=== PATIENT | female | born 1945 | race Caucasian/White ===

== ENCOUNTER 2017-02-20 20:10 | Emergency (ER) | payer MEDICARE, OTHER ==
[~2017-02-20] VITALS: Ht 170.2 cm; Wt 68.2 kg
[~2017-02-20 20:10] MED LIST: AMLO1CAP72 PO; ATOR40TA21 PO; CEPH-443 PO; CYCL-117 PO; ESOM40CA PO; NAPR-260 PO; RTPRO IH
[2017-02-20 20:14] VITALS: Ht 170.2 cm; Wt 68.2 kg
--- NOTE | 2017-02-20 22:26 | ERD ---
ER Documentation Chief Complaint Chief Complaint FALL DOWN STAIRS DUE TO LOSS OF FOOTING, HEAD BUMP, -N/V/DIZZINESS HPI This is a 71-year-old female who presents to the emergency department today complaining of a headache and abrasion on her head that she sustained earlier today. Patient states that she was at her daughter's house when she was walking up a slope and slipped on the slope and fell and hit her head. States she has not taken any medication for the pain. Denies any loss of consciousness , vomiting. ROS All systems reviewed and are negative except as per history of present illness. Medications Home Meds Active Scripts Acetaminophen* (Tylophen*) 500 Mg Capsule, 1 CAP PO Q6H Y for PAIN AND OR ELEVATED TEMP, #30 CAP Prov:FILIPE MCCAIN PA-C 02/20/17 Naproxen* (Naprosyn*) 500 Mg Tablet, 500 MG PO BID Y for PAIN AND/OR INFLAMMATION, #30 TAB Prov:FAISAL STEPHENS PA-C 10/19/15 Cephalexin* (Keflex*) 500 Mg Capsule, 500 MG PO Q6 for 7 Days, CAP Prov:JERMAN SKELTON NP 04/13/15 Reported Medications Albuterol Sulfate* (Proventil* Neb) 3 Ml Nebu, 3 ML IH Y 07/01/12 Cyclobenzaprine Hcl (Flexeril) 10 Mg Tablet, 10 MG PO BID 07/01/12 Esomeprazole Mag Trihydrate (Nexium) 40 Mg Capsule.dr, 40 MG PO DAILY 07/01/12 Atorvastatin (Lipitor) 40 Mg Tablet, 40 MG PO DAILY 07/01/12 Amlodipine Besylate/Benazepril (Lotrel 5-10 Mg Capsule) 1 Cap Capsule, 1 CAP PO DAILY 07/01/12 Allergies Allergies: Coded Allergies: iodine (Verified Allergy, Intermediate, RASH, HOT, MALAISE, 10/19/15) PMhx/Soc Medical and Surgical Hx: pt denies Surgical Hx History of Surgery: Yes (BREAST MASTECTOMY (L)) Anesthesia Reaction: No Hx Neurological Disorder: No Hx Respiratory Disorders: Yes (ASTHMA) Hx Cardiac Disorders: Yes (HTN) Hx Psychiatric Problems: No Hx Miscellaneous Medical Probl: Yes (BREAST CANCER) Hx Alcohol Use: No Hx Substance Use: No Hx Tobacco Use: Yes Physical Exam Vitals Vital Signs Date Time Temp Pulse Resp B/P Pulse Ox O2 Delivery O2 Flow Rate FiO2 02/20/17 20:14 97.8 91 20 181/98 99 Physical Exam Const: sitting in wheelchair, NAD Head: Abrasion left side had parietal aspect with no laceration Eyes: Normal Conjunctiva PERRLA. EOM intact. ENT: Normal External Ears, Nose and Mouth. No hemotympanum. No epistaxis. Neck: Full range of motion..~ No meningismus. No midline tenderness. Resp: Clear to auscultation bilaterally Cardio: Regular rate and rhythm, no murmurs Abd: Soft, non tender, non distended. Normal bowel sounds Skin: No petechiae or rashes Back: No midline or flank tenderness Ext: No cyanosis, or edema Neur: Awake and alert. Cranial nerves II through XII intact. Did not assess gait. Psych: Normal Mood and Affect Results 24 hrs DIAGNOSTIC IMAGING REPORT Patient: DORETHA GUSMAN : 1945 Age: 71 Sex: F [id number] DOS: 02/20/17 0000 Ordering MD: FILIPE MCCAIN PA-C Location: [facility] Room/Bed: PROCEDURE: Noncontrast CT Head. CLINICAL INDICATION: Fall. Trauma. TECHNIQUE: Noncontrast CT of the head was obtained. The administered radiation dose was CTDI vol = 44.68 mGy, DLP = 720.23 mGy-cm. One or more of the following dose reduction techniques were used: Automated exposure control, Adjustment of the mA and/or kV according to patient size, or Use of iterative reconstruction technique. COMPARISON: There are no similar studies submitted for comparison. FINDINGS: There is no acute intracranial hemorrhage, midline shift, or mass effect. The cerebral be-white matter differentiation appears preserved. No extra-axial collection is seen. There is mild diffuse cerebral volume loss. A chronic lacunar infarct measuring up to approximately 1.5 cm involves the left putamen and adjacent chapa radiata. Additional patchy low attenuation scattered in the periventricular, deep, and subcortical cerebral white matter is nonspecific, but suggestive of mild to moderate chronic microangiopathic change. The basal cisterns are preserved. There is intracranial calcific atherosclerotic disease involving the bilateral internal carotid arteries and left proximal intradural vertebral artery. There is mild mucosal thickening scattered throughout the ethmoid sinuses bilaterally. There is mild mucosal thickening in the sphenoid sinuses bilaterally. There is a small air-fluid level in the left sphenoid sinus. The visualized mastoid air cells are clear. Mild left parietal scalp swelling/small hematoma is noted. No acute fracture or suspicious osseous lesion is identified. IMPRESSION: 1. No evidence of an acute intracranial process. 2. Chronic lacunar infarct measuring up to approximately 1.5 cm extending from the left putamen into the adjacent chapa radiata. 3. Evidence of mild to moderate chronic microangiopathic cerebral white matter change. 4. Mild diffuse cerebral and cerebellar volume loss. 5. Intracranial calcific atherosclerotic disease. 6. Mucosal thickening in the ethmoid and sphenoid sinuses bilaterally. A small air-fluid level is noted in the left sphenoid sinus. Correlate clinically for possible acute sinusitis. 7. Left high parietal mild scalp swelling/small hematoma. No underlying calvarial fracture. RPTAT: [facility] Physician Grant Date Time Electronically viewed and signed by Physician Grant on 02/20/2017 23: 13 RC/ CC: FILIPE MCCAIN PA-C DIAGNOSTIC IMAGING REPORT Patient: DORETHA GUSMAN : 1945 Age: 71 Sex: F MR #: [id number] DOS: 02/20/17 0000 Ordering MD: FILIPE MCCAIN PA-C Location: [facility] Room/Bed: PROCEDURE: CT Cervical Spine. CLINICAL INDICATION: Fall, trauma, neck pain TECHNIQUE: A CT of the cervical spine was performed utilizing thin section axial images from the skull base through the thoracic inlet. Sagittal and coronal reformatted images were made. The CTDIvol is 22.22 mGy and the DLP is 494.08 mGycm. One or more the following dose reduction techniques were utilized: Automated exposure control, adjustment of the mA and / or kV according to patient's size, or use of iterative reconstruction technique. DICOM images are available. COMPARISON: None. FINDINGS: No acute fracture or dislocation seen. Degenerative disc changes are seen C4-5 and C5-6 and also at C3-4 and C4-5. Facet degenerative changes are seen at several levels. Uncovertebral degenerative changes in mid cervical spine. At C5- 6 there is mild bilateral foraminal stenosis and mild central spinal stenosis. Arterial calcification including bilateral cervical carotid calcification. There is an enlarged left lobe of the thyroid. IMPRESSION: No acute fracture or dislocation seen. Degenerative changes. Please see above. RPTAT: [facility] .Rob Mosley MD, MD Date Time Electronically viewed and signed by .Rob Mosley MD, MD on 02/20/2017 23:27 .S/ CC: FILIPE MCCAIN PA-C Procedures/MDM This is a 71-year-old female who presents emergency department today complaining of a slight headache after slipping and falling on a hill by her daughter's house earlier today. Patient does have a history of hypertension and her blood pressure was elevated at 181/98. States she has not seen her doctor for a short period of time. Patient denied any pain medication for her headache however given that patient did have an abrasion on her head I did obtain a head and neck CT scan. Head CT noncontrast evidence of acute intracranial process. There are chronic lacunar infarcts and evidence of mild to moderate chronic micro-angiographic cerebral white matter changes. There is mild diffuse cerebral and surgery for alveolar volume loss. There is mucosal thickening in the ethmoid and sphenoid sinuses. There is a left high parietal mild scalp swelling and small hematoma with no underlying cold burial fracture. Cervical Spine CT shows no acute fracture dislocation. There is degenerative disc changes at C4-5 C5 and 6 and 3 and 4 and 4 and 5. There is bilateral foraminal stenosis and mild central spinal stenosis. Denied any pain in the posterior aspect of her head. Her blood pressure is elevated at 181/98 however a low suspicion for hypertensive emergency as a cause of patient's headache. Patient has no focal neurologic deficits suspicion for acute hemorrhage, abscess, mass, meningitis, acute fracture dislocation. Symptoms at this time is consistent with head injury secondary to fall . She will be in a prescription for Tylenol for home At this time the patient is stable for discharge and outpatient management. Patient should follow up with their PCP in the next 1-2 days. They may return to the emergency department sooner for any persistent or worsening of symptoms. Patient understood and agreed with the plan. Departure Diagnosis: Primary Impression: Acute head injury without loss of consciousness Encounter type: initial encounter Qualified Code: S09.90XA - Acute head injury without loss of consciousness, initial encounter Additional Impression: Fall Encounter type: initial encounter Qualified Code: W19.XXXA - Fall, initial encounter Condition: Fair FILIPE MCCAIN PA-C Feb 20, 2017 22:26
--- NOTE | 2017-02-20 23:13 | RADRPT ---
PROCEDURE: Noncontrast CT Head. CLINICAL INDICATION: Fall. Trauma. TECHNIQUE: Noncontrast CT of the head was obtained. The administered radiation dose was CTDI vol = 44.68 mGy, DLP = 720.23 mGy-cm. One or more of the following dose reduction techniques were used: Au tomated exposure control, Adjustment of the mA and/or kV according to patient size, or Use of iterat garret reconstruction technique. COMPARISON: There are no similar studies submitted for comparison. FINDINGS: There is no acute intracranial hemorrhage, midline shift, or mass effect. The cerebral be-white ma tter differentiation appears preserved. No extra-axial collection is seen. There is mild diffuse cer ebral volume loss. A chronic lacunar infarct measuring up to approximately 1.5 cm involves the left putamen and adjacent chapa radiata. Additional patchy low attenuation scattered in the periventricu lar, deep, and subcortical cerebral white matter is nonspecific, but suggestive of mild to moderate chronic microangiopathic change. The basal cisterns are preserved. There is intracranial calcific at herosclerotic disease involving the bilateral internal carotid arteries and left proximal intradural vertebral artery. There is mild mucosal thickening scattered throughout the ethmoid sinuses bilater ally. There is mild mucosal thickening in the sphenoid sinuses bilaterally. There is a small air-flu id level in the left sphenoid sinus. The visualized mastoid air cells are clear. Mild left parietal scalp swelling/small hematoma is noted. No acute fracture or suspicious osseous lesion is identified . IMPRESSION: 1. No evidence of an acute intracranial process. 2. Chronic lacunar infarct measuring up to approximately 1.5 cm extending from the left putamen into the adjacent chapa radiata. 3. Evidence of mild to moderate chronic microangiopathic cerebral white matter change. 4. Mild diffuse cerebral and cerebellar volume loss. 5. Intracranial calcific atherosclerotic disease. 6. Mucosal thickening in the ethmoid and sphenoid sinuses bilaterally. A small air-fluid level is no andrea in the left sphenoid sinus. Correlate clinically for possible acute sinusitis. 7. Left high parietal mild scalp swelling/small hematoma. No underlying calvarial fracture. RPTAT: [facility] Pepito Arita Physician Date Time Electronically viewed and signed by Pepito Arita Physician on 02/20/2017 23:13 RC/
--- NOTE | 2017-02-20 23:28 | RADRPT ---
PROCEDURE: CT Cervical Spine. CLINICAL INDICATION: Fall, trauma, neck pain TECHNIQUE: A CT of the cervical spine was performed utilizing thin section axial images from the skull base through the thoracic inlet. Sagittal and coronal reformatted images were made. The CTDI vol is 22.22 mGy and the DLP is 494.08 mGycm. One or more the following dose reduction techniques were utilized: Automated exposure control, adjus tment of the mA and / or kV according to patient's size, or use of iterative reconstruction techniqu e. DICOM images are available. COMPARISON: None. FINDINGS: No acute fracture or dislocation seen. Degenerative disc changes are seen C4-5 and C5-6 and also at C3-4 and C4-5. Facet degenerative changes are seen at several levels. Uncovertebral degenerative tena nges in mid cervical spine. At C5-6 there is mild bilateral foraminal stenosis and mild central spin al stenosis. Arterial calcification including bilateral cervical carotid calcification. There is an enlarged left lobe of the thyroid. IMPRESSION: No acute fracture or dislocation seen. Degenerative changes. Please see above. RPTAT: [facility]JES .Rob Mosley MD, MD Date Time Electronically viewed and signed by .Rob Mosley MD, on 02/20/2017 23:27 .S/
[2017-02-20] MEDS ORDERED: ACET500C5 PO (23:46)
[2017-02-21 00:12] VITALS: BP 195/97; PULSE 90; RESP 18; TEMP 98.1
== END 2017-02-21 00:15 | disposition home or self-care (01) ==
LOC: FTE 20:10
DX: S00.91XA Abrasion of unspecified part of head, initial encounter (principal); J45.909 Unspecified asthma, uncomplicated; I10 Essential (primary) hypertension; W10.9XXA Fall (on) (from) unspecified stairs and steps, initial encounter; Y92.9 Unspecified place or not applicable; Z85.3 Personal history of malignant neoplasm of breast; Z87.891 Personal history of nicotine dependence
CPT/HCPCS: 70450; 72125

== ENCOUNTER 2017-07-05 17:20 | Inpatient (IN) | END 2017-07-08 17:44 | disposition home or self-care (01) | DRG 812 ==

== ENCOUNTER → 2017-07-05 | Outpatient (CLI) | END | disposition home or self-care (01) ==

== ENCOUNTER 2018-03-17 14:01 | Emergency (ER) | END 2018-03-17 15:51 | disposition home or self-care (01) ==

== ENCOUNTER 2018-05-08 06:16 | Day surgery (SDC) | payer MEDICARE, OTHER ==
[2018-05-08] VITALS (10 sets, daily range): BP systolic 87–137; BP diastolic 50–82; PULSE 66–84; RESP 16–28; Ht 170.2 cm; Wt 60.7 kg
[~2018-05-08] VITALS: Ht 170.2 cm; Wt 60.7 kg
[~2018-05-08 06:16] MED LIST changes: -AMLO1CAP72 PO; +AMLO1CAP8 PO; -ATOR40TA21 PO; +ATOR40TA68 PO; -CEPH-443 PO; -CYCL-117 PO; +CYCL10TA7 PO; -ESOM40CA PO; +FER325 PO; +HYDR-3980 PO; +IBUP-1561 PO; +LEVO100T8 PO; -NAPR-260 PO; +PANT40TA4 PO; -RTPRO IH; +ZOLP10TA5 PO
[2018-05-08] MEDS ORDERED: CEFAZOLIN 2 GM/50 ML (PMX) 50 ML IVPB ONE (07:00)
[2018-05-08] MEDS ORDERED: SOD CHLORIDE 0.9% 1,000 ML IV SCH (07:00)
[2018-05-08] MEDS ORDERED: ACETAMINOPHEN 500 MG TAB ONE (07:06)
[2018-05-08] MEDS ORDERED: ACETAMINOPHEN 500 MG TAB PO ONE (07:30)
--- NOTE | 2018-05-08 08:38 | PREAC ---
Date/Time of Note Date/Time of Note DATE: 05/08/18 TIME: 08:36 Anesthesia Eval and Record Evaluation Time Pre-Procedure Interview DATE: 05/08/18 TIME: 08:36 Age 72 Sex female NPO: 8 hrs Preoperative diagnosis L breast CA Planned procedure L breast skin biopsy Past Medical History Past Medical History: Includes (mini TIA x3) Cardio: HTN, Dyslipidemia Endo: Hypothyroid GI: GERD Surgery & Anesthesia Issues No known issue Meds Anticoagulation: No Beta Clem within 24 hr: No Reason Beta Clem not given: Pt. not on B-Clem Active Scripts Ferrous Sulfate* (Ferrous Sulfate*) 325 Mg Tabec, 325 MG PO TID for 30 Days, TAB Prov:DG CASTILLO 07/08/17 Zolpidem Tartrate* (Zolpidem Tartrate*) 10 Mg Tablet, 10 MG PO QHS PRN for INSOMNIA, #30 TAB Prov:DG CASTILLO 07/08/17 Reported Medications Atorvastatin* (Atorvastatin*) 40 Mg Tablet, 40 MG PO QHS, #30 TAB 07/05/17 Pantoprazole* (Pantoprazole*) 40 Mg Tablet.dr, 40 MG PO AC BREAKFAST, TAB 07/05/17 Amlodipine Besylate/Benazepril (Amlodipine-Benazepril 5-10 mg) 1 Each Capsule, 1 EACH PO DAILY, CAP 07/05/17 Levothyroxine Sodium* (Levothyroxine Sodium*) 100 Mcg Tablet, 100 MCG PO BEFORE BREAKFAST, #30 TAB 07/05/17 Discontinued Reported Medications Hydrocodone/Acetaminophen ([place] 10-325 Tablet) 1 Each Tablet, 1 EACH PO NEEDED, TAB 07/05/17 Cyclobenzaprine Hcl* (Cyclobenzaprine Hcl*) 10 Mg Tablet, 10 MG PO BID, #60 TAB 07/05/17 Discontinued Scripts Ibuprofen* (Motrin*) 400 Mg Tab, 400 MG PO Q6, #20 TAB Prov:MAXX LYNCH MD 03/17/18 Current Medications Sodium Chloride 1,000 ml @ 75 mls/hr [id number] IV ; Start 05/08/18 at 07:00; Stop 05/08/18 at 20:19 Meds reviewed: Yes Allergies Coded Allergies: iodine (Verified Allergy, Intermediate, RASH, HOT, MALAISE, 05/08/18) Allergies Reviewed: Yes Labs/Studies Labs Reviewed: Reviewed by anesthesiologist Result Diagram: 05/08/18 0630 05/08/18 0630 Laboratory Tests 05/08/18 06:30 test: Negative Studies: ECG (nsr, possible anterior infarct), CXR (Mild bibasilar atelectatic changes and scarring, Calcified aorta consistent with atherosclerotic disease.) Pre-procedure Exam Last vitals Vital Signs Date Temp Pulse Resp B/P (MAP) Pulse Ox O2 O2 Flow FiO2 Time Delivery Rate 05/08/18 97.7 84 16 137/82 97 07:53 (100) Airway: Adequate mouth opening, Adequate thyromental dist Mallampati: Mallampati II Teeth: Abnormal (dentures removed, there are a few remaining lower teeth in poor condition) Lung: Normal Heart: Normal ASA Physical Status ASA physical status: 2 Emergency: None Planned Anesthetic General/MAC: MAC Pre-operative Attestations Prior to commencing anesthesia and surgery, the patient was re-evaluated, there was verification of: *The patient's identity *The results of appropriate recent lab work and preoperative vital signs *The above evaluation not changing prior to induction *Anesthetic plan, risk benefits, alternative and complications discussed with patient/family; questions answered; patient/family understands, accepts and wishes to proceed. LUIS HARRY May 08, 2018 08:38
[2018-05-08] MEDS ORDERED: PROPOFOL 20 ML ONE (08:55)
[2018-05-08] MEDS ORDERED: MIDAZOLAM 1 MG/ML 2 ML INJ ONE (08:55)
[2018-05-08] MEDS ORDERED: CEFAZOLIN 1 GM INJ ONE (08:55)
[2018-05-08] MEDS ORDERED: LIDOCAINE 2% (SDV) 5 ML INJ ONE (08:55)
[2018-05-08] MEDS ORDERED: FENTAnyl 50 MCG/ML VIAL ONE (08:56)
[2018-05-08] MEDS ORDERED: ALBUTEROL 0.083% (NEB) 2.5 MG/3 ML AMP HHN PRN (09:00)
[2018-05-08] MEDS ORDERED: EPHEDrine SULFATE 50 MG/5 ML SYG IV PRN (09:00)
[2018-05-08] MEDS ORDERED: FENTAnyl 50 MCG/ML VIAL IV PRN (09:00)
[2018-05-08] MEDS ORDERED: DIPHENHYDRAMINE 50 MG INJ IV PRN (09:00)
[2018-05-08] MEDS ORDERED: HYDROmorphONE 1 MG/5 ML IV SYRINGE IV PRN (09:00)
[2018-05-08] MEDS ORDERED: hydrALAzine 20 MG INJ IV PRN (09:00)
[2018-05-08] MEDS ORDERED: LABETALOL HCL 20MG INJ IV PRN (09:00)
[2018-05-08] MEDS ORDERED: ATROPINE 1 MG/10 ML SYRINGE IV PRN (09:00)
[2018-05-08] MEDS ORDERED: ONDANSETRON 4 MG INJ IV PRN (09:00)
[2018-05-08] MEDS ORDERED: OXYCODONE/ACETAMINOPHEN (5/325) TAB PO PRN (09:00)
[2018-05-08] MEDS ORDERED: METOCLOPRAMIDE 10 MG INJ ONE (09:40)
[2018-05-08] MEDS ORDERED: LIDOCAINE 1%/EPI (1:100,000) (MDV) 20 ML ONE (09:56)
--- NOTE | 2018-05-08 10:22 | NUR ---
PACU: Received patient in pacu via [facility] s/p left breast skin bx vss AAOX4 HOB @ semi jean position breathing with ease, left breast dressing dry & intact w/ x1 band-aid, denies pain, phone daughter & given her update. placed warm blanket to keep warm, will continue to monitor.
--- NOTE | 2018-05-08 10:26 | PAC ---
Date/Time of Note Date/Time of Note DATE: 05/08/18 TIME: 10:25 Post-Anesthesia Notes Post-Anesthesia Note Last documented vital signs Vital Signs Date Temp Pulse Resp B/P (MAP) Pulse Ox O2 O2 Flow FiO2 Time Delivery Rate 05/08/18 98 77 16 100/56 100 ra 1022 Activity: WNL Respiratory function: WNL Cardiovascular function: WNL Mental status: Baseline Pain reasonably controlled: Yes Hydration appropriate: Yes Nausea/Vomiting absent: Yes LUIS HARRY May 08, 2018 10:26
--- NOTE | 2018-05-08 10:28 | SIPON ---
Date/Time of Note Date/Time of Note DATE: 05/08/18 TIME: 10:27 Operative Report Preoperative Diagnosis Skin lesion left breast rule out recurrent breast cancer Postoperative Diagnosis Same Operation/Procedure Performed Biopsy of skin lesion left breast Surgeon see signature line product safety technical assistant None Anesthesia: general Estimated blood loss: minimal Transfusion Required none Specimen Skin lesion left breast Grafts/Implants none Complications none JAMES DORSEY MD May 08, 2018 10:28
--- NOTE | 2018-05-08 10:34 | OPR ---
DATE OF OPERATION: 05/08/2018 PREOPERATIVE DIAGNOSIS: Skin lesion, left breast. POSTOPERATIVE DIAGNOSIS: Skin lesion, left breast. OPERATION PERFORMED: Biopsy of skin lesion, left breast. ANESTHESIA: IV sedation and local. ANESTHESIOLOGIST: Nurse organic extractions technician, Michelle Chamorro NP. SURGEON: Bobby Keys MD PHOTOGRAPHIC PROCESSOR: None. INDICATIONS FOR PROCEDURE: The patient is a 72-year-old female who previously had underwent a left m odified radical mastectomy for invasive cancer in 1994 and then she had immediate reconstruction. Julia early presented with a several-month history of skin changes overlying the breast suspicious for possible recurrent cancer. She was counseled on the need for biopsy. She consented and [facility] DESCRIPTION OF PROCEDURE: The patient was brought to the operating theater, placed under IV sedation . The left breast was prepped and draped in usual sterile fashion. A punch biopsy was performed usi ng the punch biopsy device. The specimen was sent for permanent pathologic analysis. The small inci anam was then closed with 5-0 PDS suture and Dermabond was applied. Patient tolerated the procedure well. Estimated blood loss was minimal. There were no complications and the patient was transported in stable condition to the recovery room. Dictated By: BOBBY STANTON/DAVID Conf#: [id number] DID#: [id number]
--- NOTE | 2018-05-08 11:00 | NUR ---
PACU: Transferred patient [facility] [place] AAOX4 vss, HOB @ semi jean position breathing with ease, left breast dressing dry & intact w/ x1 band-aid, denies pain , report given to VIVIAN Weiss
== END 2018-05-08 14:47 | disposition home or self-care (01) ==
LOC: SDS 06:16
PROVIDERS: ATTEND Surgery Surgical Oncology
DX: L30.8 Other specified dermatitis (principal); N64.89 Other specified disorders of breast; I10 Essential (primary) hypertension; E11.9 Type 2 diabetes mellitus without complications; E78.5 Hyperlipidemia, unspecified
CPT/HCPCS: 19101; 71045; 80053; 85025; 85610; 85730; 88305; 93005; J0690; J2250; J2765; J3010

== ENCOUNTER → 2018-05-23 | Outpatient (CLI) | payer MEDICARE, OTHER ==
[~2018-05-23] MED LIST changes: -CYCL10TA7 PO; -HYDR-3980 PO; -IBUP-1561 PO
== END | disposition home or self-care (01) ==
LOC: VAS 14:59
PROVIDERS: ATTEND Internal Medicine
DX: I63.9 Cerebral infarction, unspecified (principal)
CPT/HCPCS: 93880

== ENCOUNTER 2018-06-15 17:39 | Emergency (ER) | payer MEDICARE, OTHER ==
[~2018-06-15] VITALS: Ht 172.7 cm; Wt 62.1 kg
[2018-06-15 17:50] VITALS: BP 161/76; PULSE 93; RESP 20; Ht 172.7 cm; Wt 62.1 kg
[2018-06-15] MEDS ORDERED: KETOROLAC 15 MG INJ IM STA (21:19)
[2018-06-15] MEDS ORDERED: ZOLP10TA5 PO (21:22)
[2018-06-15] MEDS ORDERED: FER325 PO (21:22)
[2018-06-15] MEDS ORDERED: LEVO100T8 PO (21:22)
[2018-06-15] MEDS ORDERED: ATOR40TA68 PO (21:23)
[2018-06-15] MEDS ORDERED: PANT40TA4 PO (21:23)
[2018-06-15] MEDS ORDERED: AMLO1CAP8 PO (21:25)
[2018-06-15] MEDS ORDERED: HYDROCODONE/APAP (5/325) TAB PO ONE (21:30)
--- NOTE | 2018-06-15 23:29 | ERD ---
ER Documentation Chief Complaint Chief Complaint Complains of severe back pain Hx of a broken collar bone, fractured rib HPI 72-year-old female history of hypertension, hyperlipidemia and thyroid disease ambulatory to the ED complaining worsening, severe sharp, nonradiating right shoulder and right chest wall pain since a fall in early March. Patient was diagnosed with a distal clavicle fracture but since then has had worsening right scapular pain and right chest wall pain and feels as though "the bones are moving". Pain is exacerbated by any movement and not relieved by acetaminophen or ibuprofen. Denies shortness of breath, cough, chest pain or hemoptysis. No fall or trauma since the original injury. No mid back pain. No dysuria, polyuria, hematuria or flank pain. No abdominal pain, nausea or vomiting. No fevers or chills. ROS All systems reviewed and are negative except as per history of present illness. Medications Home Meds Active Scripts Tramadol HCl (Tramadol HCl) 50 Mg Tablet, 50 MG PO Q6 PRN for PAIN, #12 TAB Prov:CHRISTINE AMBROSE MD 06/15/18 Reported Medications Amlodipine Besylate/Benazepril (Amlodipine-Benazepril 5-10 mg) 1 Each Capsule, 1 EACH PO DAILY, CAP 06/15/18 Pantoprazole* (Pantoprazole*) 40 Mg Tablet.dr, 40 MG PO AC BREAKFAST, TAB 06/15/18 Atorvastatin* (Atorvastatin*) 40 Mg Tablet, 40 MG PO QHS, #30 TAB 06/15/18 Zolpidem Tartrate* (Zolpidem Tartrate*) 10 Mg Tablet, 10 MG PO QHS PRN for INSOMNIA, #30 TAB 06/15/18 Ferrous Sulfate* (Ferrous Sulfate*) 325 Mg Tabec, 325 MG PO TID, TAB 06/15/18 Levothyroxine Sodium* (Levothyroxine Sodium*) 100 Mcg Tablet, 100 MCG PO BEFORE BREAKFAST, #30 TAB 06/15/18 Discontinued Reported Medications Atorvastatin* (Atorvastatin*) 40 Mg Tablet, 40 MG PO QHS, #30 TAB 07/05/17 Pantoprazole* (Pantoprazole*) 40 Mg Tablet.dr, 40 MG PO AC BREAKFAST, TAB 07/05/17 Amlodipine Besylate/Benazepril (Amlodipine-Benazepril 5-10 mg) 1 Each Capsule, 1 EACH PO DAILY, CAP 07/05/17 Levothyroxine Sodium* (Levothyroxine Sodium*) 100 Mcg Tablet, 100 MCG PO BEFORE BREAKFAST, #30 TAB 07/05/17 Discontinued Scripts Ferrous Sulfate* (Ferrous Sulfate*) 325 Mg Tabec, 325 MG PO TID for 30 Days, TAB Prov:DG CASTILLO 07/08/17 Zolpidem Tartrate* (Zolpidem Tartrate*) 10 Mg Tablet, 10 MG PO QHS PRN for INSOMNIA, #30 TAB Prov:DG CASTILLO 07/08/17 Allergies Allergies: Coded Allergies: iodine (Verified Allergy, Intermediate, RASH, HOT, MALAISE, 06/15/18) Iodinated Contrast- Oral and IV Dye (Unverified Allergy, Unknown, 06/15/18) PMhx/Soc Reviewed in chart. As per HPI. History of Surgery: Yes (LEFT BREST FULL MASTECTOMY WITH LYMPH, recent biopsy negative for recurrence) Anesthesia Reaction: No Hx Neurological Disorder: Yes (WEAKNESS AND BALANCE) Hx Respiratory Disorders: Yes Hx Cardiac Disorders: Yes (HLD, HTN) Hx Psychiatric Problems: No Hx Miscellaneous Medical Probl: Yes (Breast cancer) Hx Alcohol Use: No Hx Substance Use: No Hx Tobacco Use: Yes Smoking Status: Current every day smoker FmHx No family history relevant to presenting complaint Physical Exam Vitals Vital Signs Date Temp Pulse Resp B/P (MAP) Pulse Ox O2 O2 Flow FiO2 Time Delivery Rate 06/15/18 98.6 93 20 161/76 97 17:50 (104) Physical Exam Const: Moderate distress due to pain Head: Atraumatic Eyes: Normal Conjunctiva ENT: Normal External Ears, Nose and Mouth. Neck: Full range of motion. Thyroid goiter. No midline bony tenderness or paraspinal muscle spasm. Resp: Breath sounds are equal and clear to auscultation bilaterally. No rales rhonchi or wheezes Cardio: Regular rate and rhythm, no murmurs. Chest Wall: Status post left mastectomy and reconstruction. No rib tenderness, ecchymosis or bruising. No crepitus. Abd: Soft, non tender, non distended. Normal bowel sounds Skin: No petechiae or rashes Back: No midline thoracic or lumbar bony tenderness to palpation or percussion. No paraspinal muscle spasm. No CVA tenderness. MSK: Right shoulder: Range of motion is diminished due to pain. Right distal clavicle tenderness but no overlying ecchymosis or gross deformity. Mild right scapular tenderness but no ecchymosis or deformity. No elbow or wrist swelling or tenderness. Compartments are soft. Distal neurovascular intact. Neur: Awake and alert. No focal deficit observed. Psych: Anxious but not depressed. Results 24 hrs Current Medications Medications Dose Sig/Valentin Start Time Status Last (Trade) Ordered Route PRN Stop Time Admin Dose Reason Admin 1 tab ONCE ONCE 06/15/18 DC 06/15/18 Acetaminophen PO 21:30 06/15/18 21:28 / 21:31 Hydrocodone Bitart ([place] (5/325)) Ketorolac 15 mg ONCE STAT 06/15/18 DC 06/15/18 Tromethamine IM 21:19 06/15/18 21:27 (Toradol) 21:23 Procedures/MDM DOCUMENTS REVIEWED: ED nurse, prior ED, prior records IMAGING: PROCEDURE: CT Chest Without Intravenous Contrast CLINICAL INDICATION: Trauma/fall. Right scapula and right chest wall pain. TECHNIQUE: Axial computed tomography images of the chest without intravenous contrast. Sagittal and coronal reformatted images were created and reviewed. CTDIvol (mGy) = 9.22; total DLP (mGy-cm) = 354.81.. This CT exam was performed using one or more of the following dose reduction techniques: automated exposure control, adjustment of the mA and/or kV according to patient size, and/or use of iterative reconstruction technique. DICOM images are available. COMPARISON: XR chest 05/08/2018. FINDINGS: LUNGS: Noncalcified 5 mm pulmonary nodule right upper lobe. Scattered areas of pulmonary fibrosis in the lower lungs. No consolidative pulmonary infiltrates. Mild centrilobular emphysema noted. PLEURAL SPACE: Unremarkable. No pneumothorax. No significant effusion. HEART: Mild anterior pericardial thickening versus small pericardial effusion. No cardiomegaly. MEDIASTINUM: Small hiatal hernia noted. THYROID: Diffuse enlargement of the thyroid, suggesting mild goiter. BONES/JOINTS: Moderate compression fracture of the L1 vertebral body, which appears acute. The right scapula is intact. No definite acute rib fractures are identified. Old ununited fracture of the distal right clavicle. Healed fractures of the right second, third, and fourth anterolateral ribs. There is an ununited fracture of the right anterolateral fifth rib, with sclerotic margins, which is likely old. A healed fracture of the right sixth lateral rib is also noted. No dislocation. SOFT TISSUES: There is an unremarkable left breast implant demonstrated. VASCULATURE: The thoracic aorta is ectatic and atherosclerotic. LYMPH NODES: Unremarkable. No enlarged lymph nodes. IMPRESSION: 1. Moderate compression fracture of the L1 vertebral body, which appears acute. No additional acute fractures noted in the thorax. 2. The right scapula is intact. 3. No definite acute rib fractures are identified. Multiple old right rib fractures, as above. 4. Old ununited fracture of the distal right clavicle. This is unchanged from XR chest of 05/08/2018. 5. Noncalcified 5 mm pulmonary nodule right upper lobe. In low-risk patients (minimal or absent history of smoking or other known risk factors), no follow-up is necessary. For high-risk patients (history of smoking or other known risk factors), an optional chest CT at 12 months could be performed. 6. Diffuse enlargement of the thyroid, suggesting mild goiter. RPTAT: [facility] Lazara Farnsworth Physician Director Of Exhibit Development Date Time Electronically viewed and signed by Lazara Farnsworth Physician Director Of Exhibit Development on 06/15/2018 22:56 C/ [employer]KIN-year-old female history of hypertension, hyperlipidemia and thyroid disease ambulatory to the ED complaining worsening, severe sharp, nonradiating right shoulder and right chest wall pain since a fall in early March. CT to evaluate for chest wall injury reveals previously diagnosed distal clavicle fracture and multiple prior rib fractures. No scapular fracture. No pulmonary contusion or pneumothorax. Incidentally identified is an L1 compression fracture that appears acute but patient has no pain or tenderness at that site. Patient required intravenous opiates for pain control. Stable for discharge with appropriate analgesics, precautionary instructions and outpatient follow-up as counseled. Counseled patient and daughter regarding diagnostic workup, diagnosis and need for followup. Understands to return to ED if symptoms recur, worsen or any other concerns. Departure Diagnosis: Primary Impression: Right-sided chest wall pain Additional Impressions: Closed right clavicular fracture Encounter type: subsequent encounter Clavicle location: unspecified part of clavicle Fracture alignment: displaced Fracture healing: with delayed healing Qualified Codes: S42.001G - Fracture of unspecified part of right clavicle, subsequent encounter for fracture with delayed healing Ribs, multiple fractures Encounter type: subsequent encounter Fracture type: closed Laterality: right Fracture healing: with routine healing Qualified Codes: S22.41XD - Multiple fractures of ribs, right side, subsequent encounter for fracture with routine healing Compression fracture of L1 vertebra Encounter type: initial encounter Fracture type: closed Qualified Codes: S32.010A - Wedge compression fracture of first lumbar vertebra, initial encounter for closed fracture Condition: Stable CHRISTINE AMBROSE MD Jun 15, 2018 23:29
[2018-06-15] MEDS ORDERED: TRAM50TA2 PO (23:32)
== END 2018-06-16 00:32 | disposition home or self-care (01) ==
LOC: E/R 17:39
DX: S32.010A Wedge compression fracture of first lumbar vertebra, initial encounter for closed fracture (principal); S42.001G Fracture of unspecified part of right clavicle, subsequent encounter for fracture with delayed healing; S22.41XD Multiple fractures of ribs, right side, subsequent encounter for fracture with routine healing; I10 Essential (primary) hypertension; F17.210 Nicotine dependence, cigarettes, uncomplicated; X58.XXXA Exposure to other specified factors, initial encounter; Y92.9 Unspecified place or not applicable
CPT/HCPCS: 71250; 96372; 99285; J1885